=== PATIENT | female | born 1980 | race Caucasian/White ===

== ENCOUNTER 2016-07-22 10:03 | Emergency (ER) | payer BC ==
[~2016-07-22] VITALS: Ht 175.3 cm; Wt 114.0 kg
[2016-07-22 10:05] VITALS: Ht 175.3 cm; Wt 114.0 kg
--- NOTE | 2016-07-22 11:22 | ERD ---
ER Documentation Chief Complaint Date/Time DATE: 07/22/16 TIME: 11:17 Chief Complaint brownish discharge today , 6 weeks preg , lmp 06/07/16 HPI This a 36-year-old female who presents to the emergency department today complaining of brown discharge that started today. Patient states she is approximate 6 weeks . States that she saw her [employer] , Dr. Edwards, 2 days ago and had an ultrasound and everything was fine however the discharge started this morning. Denies any fevers or chills, dysuria, abdominal pain. ROS All systems reviewed and are negative except as per history of present illness. Medications Home Meds Active Scripts Cephalexin* (Keflex*) 500 Mg Capsule, 500 MG PO QID for 7 Days, CAP Prov:CRISTOBAL HORNE PA-C 07/22/16 Allergies Allergies: Coded Allergies: No Known Allergy (Unverified , 07/22/16) PMhx/Soc Medical and Surgical Hx: pt denies Medical Hx Hx Alcohol Use: No Hx Substance Use: No Hx Tobacco Use: No Physical Exam Vitals Vital Signs Date Time Temp Pulse Resp B/P Pulse Ox O2 Delivery O2 Flow Rate FiO2 07/22/16 10:05 98.2 106 18 140/83 99 Physical Exam Const: Obese, no acute distress Head: Atraumatic Eyes: Normal Conjunctiva ENT: Normal External Ears, Nose and Mouth. Neck: Full range of motion..~ No meningismus. Resp: Clear to auscultation bilaterally Cardio: Regular rate and rhythm, no murmurs Abd: Soft, non tender, non distended. Normal bowel sounds Skin: No petechiae or rashes Neur: Awake and alert Psych: Normal Mood and Affect Results 24 hrs Laboratory Tests Test 07/22/16 11:30 07/22/16 11:37 Urine Color YELLOW Urine Clarity CLEAR Urine pH 6.0 Urine Specific Nettie 1.025 Urine Ketones NEGATIVE Urine Nitrite NEGATIVE Urine Bilirubin NEGATIVE Urine Urobilinogen 0.2 E.U./dL Urine Leukocyte Esterase 2+ Urine Microscopic RBC 5-10/HPF Urine Microscopic WBC 10-25/HPF Urine Squamous Epithelial Cells FEW Urine Bacteria FEW Urine Hemoglobin 1+ Urine Glucose NEGATIVE% Urine Total Protein NEGATIVE Bedside Urine pH (LAB) 6.0 Bedside Urine Protein (LAB) 1+ Bedside Urine Glucose (UA) Negative Bedside Urine Ketones (LAB) Negative Bedside Urine Blood 2+ Bedside Urine Nitrite (LAB) Negative Bedside Urine Leukocyte Esterase (L 2+ DIAGNOSTIC IMAGING REPORT Patient: CHARLOTTE OLIVO : 1980 Age: 36 Sex: F MR #: [id number] DOS: 07/22/16 1116 Ordering MD: CRISTOBAL HORNE PA-C Location: [facility] Room/Bed: PROCEDURE: US Obstetric less than 14 weeks. CLINICAL INDICATION: , vaginal bleeding TECHNIQUE: Transabdominal and transvaginal imaging of the pelvis was performed. Images are reviewed on a high-resolution PACS workstation. COMPARISON: None available FINDINGS: Single intrauterine gestation is identified. heart rate is 125 bpm. Erick-rump length = 0.37 cm. Gestational age is 6 weeks 0 days and MARIA ELENA is 03/17/2017 by ultrasound criteria. Gestational age is 6 weeks 3 days and MARIA ELENA is 03/14/2017 by LMP. Small subchorionic hemorrhage is noted. Right ovary demonstrates a corpus luteum cyst. Left ovary is unremarkable. No ovarian torsion, adnexal mass or pelvic free fluid is seen. IMPRESSION: 1. Single live intrauterine with an estimated gestational age of 6 weeks 0 days by ultrasound criteria, as above. Small subchorionic hemorrhage is noted. 2. No evidence of ectopic gestation is identified. RPTAT: QQ .Ruben Stanford MD, MD Date Time Electronically viewed and signed by .Ruben Stanford MD, MD on 07/22/2016 12: 23 .R/ CC: CRISTOBAL HORNE PA-C Procedures/MDM This a A1 36-year-old female who presents to the emergency department today complaining of some brown discharge that started today. Patient indicates she is approximately 6 weeks . Patient does have a [employer], Dr. Edwards, at [facility] that she saw 2 days ago and had a normal ultrasound. I had planned to do a complete OB workup on the patient however patient was adamant about getting an ultrasound prior to giving any blood work. I explained to the patient that I would not be able to let her know about her hormone levels or her blood levels however patient was refusing laboratory work UA shows 2+ leukocyte esterase. Patient was given a prescription for Keflex for urinary tract infection. Ultrasound shows a single live intrauterine with an estimated gestational age of 6 weeks and 0 days by ultrasound criteria there is a small subchorionic hemorrhage. Right ovary demonstrates a corpus luteum cyst. Left ovary is unremarkable. There is no ovarian torsion, adnexal mass or pelvic free fluid. heart rate is 125 bpm . I explained the results to the patient. Patient was instructed not to do any heavy lifting or exertional type exercises. She was instructed not have any intercourse. Patient understood. Patient has never been seen here in this emergency department and again patient refused laboratory work and therefore did have her sign a form for AMA as I do not know the patient's Rh status or hemoglobin levels. Patient was slightly tachycardic at intake. I have explained this to the patient and patient was willing to sign AMA form Patient symptoms at this time is consistent with vaginal bleeding in early versus subchorionic hemorrhage. I have explained her that she may continue to have vaginal bleeding. I explained her that she should follow-up with Dr. Edwards, for further evaluation. At this time the patient is stable for discharge and outpatient management. Patient should follow up with their PCP in the next 1-2 days. They may return to the emergency department sooner for any persistent or worsening of symptoms. Patient and understood and agreed with the plan. Departure Diagnosis: Primary Impression: Vaginal bleeding in patient at less than 20 weeks gestation Condition: CRISTOBAL Jackson PA-C July 22, 2016 11:22
[2016-07-22 11:35] LABS: URINE BLOOD (Dip) POC 2+ (NEGATIVE)
--- NOTE | 2016-07-22 12:23 | RADRPT ---
PROCEDURE: US Obstetric less than 14 weeks. CLINICAL INDICATION: , vaginal bleeding TECHNIQUE: Transabdominal and transvaginal imaging of the pelvis was performed. Images are review ed on a high-resolution PACS workstation. COMPARISON: None available FINDINGS: Single intrauterine gestation is identified. heart rate is 125 bpm. Oxbow-rump length = 0.37 cm. Gestational age is 6 weeks 0 days and MARIA ELENA is 03/17/2017 by ultrasound criteria. Gestational age is 6 weeks 3 days and MARIA ELENA is 03/14/2017 by LMP. Small subchorionic hemorrhage is noted. Right ovary demonstrates a corpus luteum cyst. Left ovary is unremarkable. No ovarian torsion, adnexal mass or pelvic free fluid is seen. IMPRESSION: 1. Single live intrauterine with an estimated gestational age of 6 weeks 0 days by ultras ound criteria, as above. Small subchorionic hemorrhage is noted. 2. No evidence of ectopic gestation is identified. RPTAT: QQ .Ruben Stanford MD, MD Date Time Electronically viewed and signed by .Ruben Stanford MD, on 07/22/2016 12:23 .R/
[2016-07-22 12:36] LABS: ADD UMIC YES; URINE BILIRUBIN (Dip) NEGATIVE (NEGATIVE); URINE BLOOD (Dip) 1+ (NEGATIVE); URINE COLOR YELLOW (YELLOW); URINE GLUCOSE (Dip) NEGATIVE (NEGATIVE); URINE KETONES (Dip) NEGATIVE (NEGATIVE); URINE LEUKOCYTE ESTERASE (Dip) 2+ (NEGATIVE); URINE NITRITE (Dip) NEGATIVE (NEGATIVE); URINE TOTAL PROTEIN (Dip) NEGATIVE (NEGATIVE); URINE UROBILINOGEN (Dip) 0.2 E.U./dL (0.1-1.0)
[2016-07-22 12:50] LABS: BACTERIA,URINE FEW; SQUAMOUS EPITHELIAL CELL,UR FEW
[2016-07-22 12:55] VITALS: BP 145/82; PULSE 78; RESP 16; TEMP 98.1
[2016-07-22] MEDS ORDERED: CEPH-443 PO (12:55)
== END 2016-07-22 12:55 | disposition left against medical advice (07) ==
LOC: FTE 10:03
DX: O20.9 Hemorrhage in early pregnancy, unspecified (principal); Z3A.01 Less than 8 weeks gestation of pregnancy
CPT/HCPCS: 76801; 76817; 81001; 81003